=== PATIENT | female | born 1985 | race Caucasian/White ===

== ENCOUNTER 2017-10-25 14:38 | Emergency (ER) | payer OTHER ==
[2017-10-25 14:52] VITALS: BP 113/72; PULSE 92; RESP 18; TEMP 97.7
--- NOTE | 2017-10-25 15:10 | ED ---
Lower Extremity Injury HPI - General Chief Complaint: Extremity Injury, Lower Stated Complaint: lt sided hip pain Time Seen by Provider: 10/25/17 14:50 Source: patient, RN notes reviewed Mode of arrival: wheelchair Limitations: no limitations - History of Present Illness Initial Comments: 32-year-old female presents emergency Department chief complaint of left low back, left hip pain. She states that she's had on-and-off issues for several years but states that this pain has been persistent for 2 weeks worsened yesterday after moving some objects. She states it feels that her hip needs to pop but will not. She states she feels it in her left buttocks region. She denies any bowel, bladder and cut his retention. Denies any abdominal pain and denies any chance of . Patient states that she's been trying Tylenol, Motrin with no relief of her symptoms. She states that the pain is worse with ambulation and states that she gets shooting pain down her leg when she tries to ambulate. - Related Data Previous Rx's Medication Instructions Recorded Cyclobenzaprine [Flexeril] 10 mg PO TID PRN #15 tab 10/25/17 Ibuprofen [Motrin] 600 mg PO Q8HR PRN #30 tab 10/25/17 predniSONE 50 mg PO DAILY #5 tab 10/25/17 Allergies Allergy/AdvReac Type Severity Reaction Status Date / Time No Known Allergies Allergy Verified 10/25/17 14:52 Review of Systems ROS Statement: Those systems with pertinent positive or pertinent negative responses have been documented in the HPI. ROS Other: All systems not noted in ROS Statement are negative. Past Medical History Additional Past Medical History / Comment(s): hep C History of Any Multi-Drug Resistant Organisms: None Reported Past Surgical History: No Surgical Hx Reported Past Psychological History: Anxiety Smoking Status: Current every day smoker Past Alcohol Use History: None Reported Past Drug Use History: None Reported General Exam Limitations: no limitations General appearance: alert, in no apparent distress Head exam: Present: atraumatic, normocephalic, normal inspection Respiratory exam: Present: normal lung sounds bilaterally. Absent: respiratory distress, wheezes, rales, rhonchi, stridor Cardiovascular Exam: Present: regular rate, normal rhythm, normal heart sounds. Absent: systolic murmur, diastolic murmur, rubs, gallop, clicks GI/Abdominal exam: Present: soft, normal bowel sounds. Absent: distended, tenderness, guarding, rebound, rigid Extremities exam: Present: other (Patient has discomfort with range of motion of the left lower extremity though full range of motion, pedal pulses equal bilaterally) Back exam: Present: full ROM, tenderness (Tenderness over the left SI joint region, minimal discomfort with Karsten's test the left pain with straight leg raise on the left), paraspinal tenderness. Absent: vertebral tenderness Neurological exam: Present: alert, oriented X3, CN II-XII intact, reflexes normal. Absent: motor sensory deficit Course Vital Signs 10/25/17 14:50 Temperature 97.7 F Pulse Rate 92 Respiratory 18 Rate Blood Pressure 113/72 O2 Sat by Pulse 97 Oximetry Medical Decision Making - Medical Decision Making 32-year-old female presented for low back pain. Patient has some pain over the SI joint. X-rays were obtained secondary to ongoing pain for greater than 2 weeks. 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 Patient will be treated conservatively and follow-up with orthopedics Dr. Mcmullen for further evaluation and possible physical therapy. Patient is neurovascularly intact and has no red flag symptoms. Patient agrees to plan and follow-up. Disposition Clinical Impression: Lumbar radiculopathy, acute, Sacralization of lumbar vertebra Disposition: HOME SELF-CARE Condition: Stable Instructions: Lumbar Radiculopathy (ED) Additional Instructions: Follow-up with orthopedic back surgeon as directed.Please return to the Emergency Department if symptoms worsen or any other concerns. Prescriptions: Cyclobenzaprine [Flexeril] 10 mg PO TID PRN #15 tab PRN Reason: Muscle Spasm Ibuprofen [Motrin] 600 mg PO Q8HR PRN #30 tab PRN Reason: Pain predniSONE 50 mg PO DAILY #5 tab Is patient prescribed a controlled substance at d/c from ED?: No Referrals: Kelsey Cannon DO [Doctor of Osteopathic Medicine] - 1-2 days Time of Disposition: 16:05
--- NOTE | 2017-10-25 15:56 | XR ---
EXAMINATION TYPE: XR pelvis AP view, XR lumbosacral spine min 5 views DATE OF EXAM: 10/25/2017 COMPARISON: NONE HISTORY: 32-year-old female with left hip and back pain FINDINGS: Lumbar spine: Dextroconvexed curvature could be positional or due to muscle spasm. There is a transitional lumbosac ral segment with a left hemisacralized L5 vertebral body that has an assimilation joint with the left side of the sacrum. No pars interarticularis defect. There is degenerative joint space narrowing and sclerosis at the facet joints of the lower lumbar spine. Disc interspaces are relatively maintained. Alignment is preserved as are vertebral body heights. Pelvis: SI joints appear symmetric and intact as does the pubic symphysis. Hips appear symmetric and intact. No acute fracture or dislocation. IMPRESSION: 1. Slight dextroconvex curvature of the lumbar spine could be positional or due to muscle spasm. 2. 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 Note that this can be a sour ce of Bertolotti's syndrome. 3. Facet arthropathy lower lumbar spine. No vertebral compression collapse or malalignment 4. Pelvis without acute osseous abnormality seen.
[2017-10-25] MEDS ORDERED: ACET/COD 300 MG/30 MG STARTER PACK 6 TAB BTL PO STA (16:05)
== END 2017-10-25 16:18 | disposition home or self-care (01) ==
LOC: EC 14:38
DX: M54.16 Radiculopathy, lumbar region (principal); Q76.49 Other congenital malformations of spine, not associated with scoliosis; F17.200 Nicotine dependence, unspecified, uncomplicated
CPT/HCPCS: 72110; 72170; 99283